=== PATIENT | female | born 1970 | race Hispanic/Latino ===

== ENCOUNTER 2017-07-16 16:45 | Emergency (ER) | payer MEDICARE ==
[2017-07-16 17:55] LABS: #Eosinphils 0.1 thou/uL (0.0-0.7); #Lymphocytes 2.4 thou/uL (1.20-3.40); #Monocytes 0.4 thou/uL (0.11-0.59); %Basophils 0.7 % (0.0-1.0); %Lymphocytes 34.4 % (21.0-51.0); %Monocytes 5.7 % (0.0-10.0); %Neutrophils 57.2 % (42.0-75.0); Hemoglobin 11.7 g/dL (12.0-16.0); Mean Corpuscular HGB CONC 35.4 g/dL (32.0-36.0); Mean Corpuscular Hemoglobin 31.9 pg (27.0-31.0); Mean Corpuscular Volume 90.1 fl (81.0-99.0); Mean Platelet Volume 7.2 fL (7.4-10.4); Platelet Count 303 thou/uL (130-400); RBC Distribution Width 11.8 % (11.5-14.5); Red Blood Cell (RBC) Count 3.66 mill/uL (4.20-5.40); White Blood Cell (WBC) Count 7.1 thou/uL (4.8-10.8)
[2017-07-16 18:16] LABS: BHCG - Serum Negative (NEGATIVE); Pregs Control Background? CLEAR/WHITE (CLR/WHITE); Pregs Control Bar Appear? YES (CONTROL BAR)
[2017-07-16 18:20] LABS: ALT (SGPT) 14 U/L (8-55); AST (SGOT) 17 U/L (5-34); Albumin 4.1 g/dL (3.5-5.0); Alkaline Phosphatase 71 U/L (40-150); Anion Gap 14 mmol/L (10-20); BUN (Urea Nitrogen) 11 mg/dL (7.0-18.7); Bilirubin, Total 0.2 mg/dL (0.2-1.2); Calc. Creatinine Clearance 0 mL/min (70-130); Calcium 9.2 mg/dL (7.8-10.44); Carbon Dioxide 24 mmol/L (22-29); Chloride 105 mmol/L (98-107); Estimated GFR-MDRD 84; Globulin 3.2 g/dL (2.4-3.5); Glucose 101 mg/dL (70-105); Protein, Total 7.3 g/dL (6.0-8.3); Sodium 139 mmol/L (136-145)
--- NOTE | 2017-07-16 18:38 | ULT ---
TRANSABDOMINAL AND TRANSVAGINAL PELVIC ULTRASOUND: Date: 07/16/17 INDICATION: Vaginal bleeding with large clots. TECHNIQUE: Palacio scale and color Doppler images were obtained of the pelvis. FINDINGS: There is a large fibroid involving the anterior fundus and anterior body of the uterus. It measures 4 .8 x 4.3 cm. The endometrial stripe is not well seen. Within the lower uterine segment, in the region of endometrial canal, there is an 8.0 mm heterogeneous collection which may reflect a blood clot. No free fluid is demonstrated. The adnexa are not well seen due to overlying bowel gas. IMPRESSION: 1. Fibroid uterus. 2. 8.0 mm heterogeneous collection seen within the endometrial canal of lower uterine segment suspic ious for small amount of intracanal hemorrhage. 3. Adnexa not well seen due to overlying bowel gas. POS: [facility]
--- NOTE | 2017-07-17 00:52 | CON ---
DATE OF CONSULTATION: 07/17/2017 GYNECOLOGIC CONSULTATION REGULAR PHYSICIAN: Allison Lopez M.D. EVALUATING PHYSICIAN: David Mcconnell M.D. CHIEF COMPLAINT: Vaginal bleeding since . HISTORY OF PRESENT ILLNESS: Ms. Bourgeois is a 47-year-old Latin-Trinid[place] female, , who presents complaining of a history of heavy vaginal bleeding since . She states that she had bled up to approximately 1 pad an hour prior to her arrival. PAST OBSTETRICAL/GYNECOLOGIC HISTORY: She has had 2 uncomplicated vaginal deliveries. She reports a n endometrial ablation approximately 10 years ago. Of note, it is the fact that she was seen by Dr. Lopez 4 months ago and plans had been made for hysterectomy, but these were apparently canceled due to cost. PAST MEDICAL HISTORY: Seizures and elevated triglycerides. She is currently on Keppra dose unknown and pravastatin. PAST SURGICAL HISTORY: Ablation as above, tubal ligation, ankle and knee surgery. ALLERGIES: No known allergies. SOCIAL HISTORY: She drinks socially, but denies tobacco or alcohol use. FAMILY HISTORY: Denies pelvic malignancy. REVIEW OF SYSTEMS: Denies nausea, vomiting, fever, chills, or syncopal episodes. PHYSICAL EXAMINATION: VITAL SIGNS: Initial exam in the ER shows blood pressure 139/82, pulse 94, respirations 16, and temp erature 98.2. Her pulse is currently in the 80s. ABDOMEN: Soft and nontender. There is no guarding or rebound. PELVIC EXAMINATION: Her uterus is slightly enlarged. There is dark blood in the vault, but she is n ot actively bleeding. LABORATORY DATA: CBC shows a white count of 7.1, hemoglobin of 11.7, hematocrit of 32.9, and a plate let count of 303. Her test is negative. Ultrasound shows a fibroid uterus seen anteriorly in the lower uterine segment reportedly 4 cm in diameter. Her adnexa are not well seen. ASSESSMENT: 1. Menorrhagia with a history of previous endometrial ablation. 2. Fibroid uterus by ultrasound tonight. PLAN: At this time, we will attempt outpatient management with Provera 10 mg p.o. b.i.d. for the nex t 10 days. I did discuss with Dr. Lopez and she can follow up with her next week. The patient was given complete discharge instructions and was told to return for pain, heavy bleeding, dizziness, or headache. She voiced understanding of her discharge instructions and was discharged by the emergency room.
[2017-07-19 04:13] LABS: Chlamydia by PCR Not Detected (NotDetected); GC by PCR Not Detected (NotDetected)
== END 2017-07-16 20:12 | disposition home or self-care (01) ==
LOC: ERS 16:45
DX: N92.0 Excessive and frequent menstruation with regular cycle (principal); D25.9 Leiomyoma of uterus, unspecified; E78.00 Pure hypercholesterolemia, unspecified; E78.5 Hyperlipidemia, unspecified; G40.909 Epilepsy, unspecified, not intractable, without status epilepticus; Z86.73 Personal history of transient ischemic attack (TIA), and cerebral infarction without residual deficits; Z79.82 Long term (current) use of aspirin; Z79.899 Other long term (current) drug therapy
CPT/HCPCS: 76856; 80053; 84703; 85025; 86850; 86900; 86901; 87480; 87491; 87510; 87591; 87660; 96360

== ENCOUNTER 2017-07-20 12:35 | Emergency (ER) | payer MEDICARE ==
[2017-07-20 13:20] LABS: #Basophils 0.1 thou/uL (0.0-0.2); #Eosinphils 0.1 thou/uL (0.0-0.7); #Lymphocytes 2.4 thou/uL (1.20-3.40); #Monocytes 0.5 thou/uL (0.11-0.59); #Neutrophils 4.9 thou/uL (1.40-6.50); %Lymphocytes 30.5 % (21.0-51.0); %Monocytes 6.3 % (0.0-10.0); %Neutrophils 61.3 % (42.0-75.0); Hemoglobin 10.6 g/dL (12.0-16.0); Mean Corpuscular Hemoglobin 31.2 pg (27.0-31.0); Mean Corpuscular Volume 91.5 fl (81.0-99.0); Mean Platelet Volume 6.7 fL (7.4-10.4); Platelet Count 342 thou/uL (130-400); RBC Distribution Width 11.9 % (11.5-14.5); White Blood Cell (WBC) Count 7.9 thou/uL (4.8-10.8)
[2017-07-20 13:47] LABS: ALT (SGPT) 12 U/L (8-55); AST (SGOT) 15 U/L (5-34); Albumin 4.2 g/dL (3.5-5.0); Alkaline Phosphatase 56 U/L (40-150); Anion Gap 13 mmol/L (10-20); BUN (Urea Nitrogen) 15 mg/dL (7.0-18.7); Bilirubin, Total 0.4 mg/dL (0.2-1.2); Calc. Creatinine Clearance 0 mL/min (70-130); Calcium 9.4 mg/dL (7.8-10.44); Carbon Dioxide 23 mmol/L (22-29); Chloride 103 mmol/L (98-107); Estimated GFR-MDRD Greater than 90; Globulin 2.9 g/dL (2.4-3.5); Glucose 101 mg/dL (70-105); Potassium 3.8 mmol/L (3.5-5.1); Protein, Total 7.1 g/dL (6.0-8.3); Sodium 135 mmol/L (136-145)
== END 2017-07-20 15:09 | disposition home or self-care (01) ==
LOC: ERS 12:35
DX: N93.9 Abnormal uterine and vaginal bleeding, unspecified (principal); E78.5 Hyperlipidemia, unspecified; G40.909 Epilepsy, unspecified, not intractable, without status epilepticus; Z79.899 Other long term (current) drug therapy; Z79.82 Long term (current) use of aspirin
CPT/HCPCS: 36415; 80053; 85025; 99284

== ENCOUNTER 2017-07-21 23:23 | Emergency (ER) | payer MEDICARE ==
[2017-07-22 00:02] LABS: #Basophils 0.1 thou/uL (0.0-0.2); #Eosinphils 0.1 thou/uL (0.0-0.7); #Monocytes 0.5 thou/uL (0.11-0.59); #Neutrophils 3.8 thou/uL (1.40-6.50); %Basophils 1.1 % (0.0-1.0); %Lymphocytes 39.6 % (21.0-51.0); %Monocytes 6.4 % (0.0-10.0); Hemoglobin 9.3 g/dL (12.0-16.0); Mean Corpuscular HGB CONC 34.6 g/dL (32.0-36.0); Mean Corpuscular Hemoglobin 31.5 pg (27.0-31.0); Mean Corpuscular Volume 91.2 fl (81.0-99.0); Mean Platelet Volume 6.5 fL (7.4-10.4); Platelet Count 329 thou/uL (130-400); RBC Distribution Width 11.9 % (11.5-14.5); Red Blood Cell (RBC) Count 2.94 mill/uL (4.20-5.40); White Blood Cell (WBC) Count 7.5 thou/uL (4.8-10.8)
[2017-07-22 00:22] LABS: ALT (SGPT) 14 U/L (8-55); AST (SGOT) 16 U/L (5-34); Albumin 3.9 g/dL (3.5-5.0); Alkaline Phosphatase 61 U/L (40-150); Anion Gap 11 mmol/L (10-20); BUN (Urea Nitrogen) 13 mg/dL (7.0-18.7); Bilirubin, Total 0.2 mg/dL (0.2-1.2); Calc. Creatinine Clearance 0 mL/min (70-130); Calcium 8.4 mg/dL (7.8-10.44); Carbon Dioxide 22 mmol/L (22-29); Chloride 106 mmol/L (98-107); Estimated GFR-MDRD Greater than 90; Globulin 2.7 g/dL (2.4-3.5); Glucose 112 mg/dL (70-105); Magnesium 2.1 mg/dL (1.6-2.6); Potassium 3.4 mmol/L (3.5-5.1); Protein, Total 6.6 g/dL (6.0-8.3); Sodium 136 mmol/L (136-145)
[2017-07-22 00:24] LABS: INR-International Normal Ratio 1.1; Prothrombin Time 14.2 SEC (12.0-14.7)
== END 2017-07-22 01:05 | disposition home or self-care (01) ==
LOC: ERS 23:23
DX: N93.9 Abnormal uterine and vaginal bleeding, unspecified (principal); Z86.73 Personal history of transient ischemic attack (TIA), and cerebral infarction without residual deficits; E78.5 Hyperlipidemia, unspecified; G40.909 Epilepsy, unspecified, not intractable, without status epilepticus; Z79.82 Long term (current) use of aspirin; Z79.899 Other long term (current) drug therapy
CPT/HCPCS: 36415; 80053; 83735; 85025; 85610; 85730; 86850; 86900; 86901; 99284

== ENCOUNTER 2018-02-05 12:51 | Outpatient (CLI) | payer BC, MEDICARE | END 2018-02-05 12:52 | disposition home or self-care (01) | LOC: BICMAMMO 12:51 | PROVIDERS: ATTEND Family Medicine | DX: Z12.31 Encounter for screening mammogram for malignant neoplasm of breast (principal) | CPT/HCPCS: 77063; 77067 ==

== ENCOUNTER 2018-04-10 08:10 | Emergency (ER) | payer BC, MEDICARE ==
[2018-04-10 08:44] LABS: #Basophils 0.1 thou/uL (0.0-0.2); #Eosinphils 0.1 thou/uL (0.0-0.7); #Lymphocytes 2.2 thou/uL (1.20-3.40); #Monocytes 0.4 thou/uL (0.11-0.59); #Neutrophils 3.9 thou/uL (1.40-6.50); %Basophils 1.6 % (0.0-1.0); %Eosinophils 1.3 % (0.0-10.0); %Lymphocytes 32.6 % (21.0-51.0); %Monocytes 6.3 % (0.0-10.0); %Neutrophils 58.2 % (42.0-75.0); Hemoglobin 9.7 g/dL (12.0-16.0); Mean Corpuscular HGB CONC 32.7 g/dL (32.0-36.0); Mean Corpuscular Hemoglobin 26.7 pg (27.0-31.0); Mean Corpuscular Volume 81.5 fL (78.0-98.0); Mean Platelet Volume 7.1 fL (7.4-10.4); Platelet Count 362 thou/uL (130-400); RBC Distribution Width 16.4 % (11.5-14.5); Red Blood Cell (RBC) Count 3.63 mill/uL (4.20-5.40); White Blood Cell (WBC) Count 6.7 thou/uL (4.8-10.8)
[2018-04-10 08:50] LABS: BHCG - Serum Negative (NEGATIVE); Pregs Control Background? CLEAR/WHITE (CLR/WHITE); Pregs Control Bar Appear? YES (CONTROL BAR)
[2018-04-10 09:02] LABS: ALT (SGPT) 10 U/L (8-55); AST (SGOT) 13 U/L (5-34); Alkaline Phosphatase 58 U/L (40-150); Anion Gap 12 mmol/L (10-20); BUN (Urea Nitrogen) 14 mg/dL (7.0-18.7); Bilirubin, Total 0.2 mg/dL (0.2-1.2); Calc. Creatinine Clearance 0 mL/min (70-130); Carbon Dioxide 23 mmol/L (22-29); Chloride 106 mmol/L (98-107); Estimated GFR-MDRD Greater than 90; Globulin 2.8 g/dL (2.4-3.5); Glucose 113 mg/dL (70-105); Protein, Total 6.8 g/dL (6.0-8.3); Sodium 137 mmol/L (136-145)
--- NOTE | 2018-04-10 11:37 | ULT ---
PELVIC ULTRASOUND: Comparison: 07-16-17 History: Heavy menstrual bleeding, passing large clots for two weeks. Technique: Multiplanar grayscale and color doppler images were obtained in a transabdominal and trans vaginal pelvic ultrasound. FINDINGS: The endometrial stripe cannot be seen within the uterus. Nabothian cysts are seen in the cervix measu ring up to 1.4 cm in size. The fundus of the uterus is slightly prominent and heterogeneous which cou ld represent a uterine fibroid. No free fluid is seen in the pelvis. A cystic structure is seen in the right adnexa measuring 3.6 cm in greatest dimension. This likely represent an ovarian cyst/follicle. The left ovary cannot be defin itely seen. IMPRESSION: 1. Possible uterine fibroid. 2. Nabothian cyst. 3. Likely right ovary cyst/follicle. POS: [facility]
== END 2018-04-10 11:39 | disposition home or self-care (01) ==
LOC: ERS 08:10
DX: N94.6 Dysmenorrhea, unspecified (principal); G40.909 Epilepsy, unspecified, not intractable, without status epilepticus; E78.5 Hyperlipidemia, unspecified; Z79.82 Long term (current) use of aspirin; Z79.899 Other long term (current) drug therapy
CPT/HCPCS: 36415; 76856; 80053; 84703; 85025

== ENCOUNTER 2018-04-10 13:41 | Emergency (ER) | payer BC, MEDICARE ==
[2018-04-10 14:40] LABS: #Basophils 0.1 thou/uL (0.0-0.2); #Eosinphils 0.1 thou/uL (0.0-0.7); #Lymphocytes 2.2 thou/uL (1.20-3.40); #Monocytes 0.4 thou/uL (0.11-0.59); %Basophils 1.6 % (0.0-1.0); %Eosinophils 0.9 % (0.0-10.0); %Lymphocytes 24.5 % (21.0-51.0); Hemoglobin 8.8 g/dL (12.0-16.0); Mean Corpuscular HGB CONC 32.1 g/dL (32.0-36.0); Mean Corpuscular Hemoglobin 25.9 pg (27.0-31.0); Mean Corpuscular Volume 80.6 fL (78.0-98.0); Mean Platelet Volume 7.1 fL (7.4-10.4); Platelet Count 328 thou/uL (130-400); RBC Distribution Width 16.4 % (11.5-14.5); Red Blood Cell (RBC) Count 3.38 mill/uL (4.20-5.40); White Blood Cell (WBC) Count 8.9 thou/uL (4.8-10.8)
== END 2018-04-10 15:45 | disposition home or self-care (01) ==
LOC: ERS 13:41
DX: N93.9 Abnormal uterine and vaginal bleeding, unspecified (principal); R53.1 Weakness; E78.5 Hyperlipidemia, unspecified; G40.909 Epilepsy, unspecified, not intractable, without status epilepticus; Z86.73 Personal history of transient ischemic attack (TIA), and cerebral infarction without residual deficits; Z79.82 Long term (current) use of aspirin; Z79.899 Other long term (current) drug therapy
CPT/HCPCS: 36415; 76856; 80053; 84703; 85025; 99284

== ENCOUNTER 2018-05-10 00:05 | Outpatient (CLI) | payer BC, MEDICARE ==
[2018-05-10 13:59] LABS: #Basophils 0.1 thou/uL (0.0-0.2); #Eosinphils 0.1 thou/uL (0.0-0.7); #Lymphocytes 2.4 thou/uL (1.20-3.40); #Monocytes 0.5 thou/uL (0.11-0.59); #Neutrophils 3.8 thou/uL (1.40-6.50); %Basophils 1.1 % (0.0-1.0); %Eosinophils 1.4 % (0.0-10.0); %Lymphocytes 34.9 % (21.0-51.0); %Monocytes 7.8 % (0.0-10.0); %Neutrophils 54.7 % (42.0-75.0); Hemoglobin 10.1 g/dL (12.0-16.0); Mean Corpuscular HGB CONC 30.6 g/dL (32.0-36.0); Mean Corpuscular Hemoglobin 29.4 pg (27.0-31.0); Mean Corpuscular Volume 95.9 fL (78.0-98.0); Mean Platelet Volume 6.9 fL (7.4-10.4); Platelet Count 435 thou/uL (130-400); Red Blood Cell (RBC) Count 3.45 mill/uL (4.20-5.40)
== END 2018-05-10 00:06 | disposition home or self-care (01) ==
LOC: LABBT 00:05
PROVIDERS: ATTEND Obstetrics & Gynecology
DX: Z01.812 Encounter for preprocedural laboratory examination (principal); N92.0 Excessive and frequent menstruation with regular cycle; D21.9 Benign neoplasm of connective and other soft tissue, unspecified
CPT/HCPCS: 85025; 86850; 86900; 86901

== ENCOUNTER 2018-05-10 12:00 | Inpatient (IN) | payer BC, MEDICARE ==
[2018-05-10 12:25] VITALS: BMI 30.3
--- NOTE | 2018-05-10 14:25 | HP ---
Ms. Bourgeois is having schedule surgery 05/14/2018. HISTORY OF PRESENT ILLNESS: Ms. Bourgeois is a 48-year-old Latin-Spanish female with date of 1970, who is having a history of menorrhagia requiring blood transfusion for severe anemia. She has a history of having known uterine fibroids that were found out approximately 2016 with a pelvic ultrasound evaluation. 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 This occurred prior to the 2011 surgical procedure for menorrhagia, which was Thermachoice. The patient had done well with the Thermachoice endometrial ablation in 2011, but then began having heavy bleeding back in 2016 with ultrasounds showing 3 x 3 cm uterine fibroid involving part of the uterine cavity. As noted, she has again started having heavy flow, most recently in April and presented to the emergency room, where she wanted to proceed with blood transfusion for anemia from the menorrhagia. She has been taking Provera 10 mg daily to help decrease the flow. She is desiring definitive surgical therapy now. Her primary care provider is Dr. Weiss. Last Pap smear reported by patient was by Dr. Weiss in January of 2018, which was normal. PAST MEDICAL HISTORY: CVA in the past and hyperlipidemia. PAST SURGICAL HISTORY: Tubal ligation, ankle surgery, Thermachoice endometrial ablation in 2011, and knee arthroscopy surgery. SOCIAL HISTORY: She is a nonsmoker. No excessive alcohol use. FAMILY HISTORY: She has no significant family history. No ovarian cancer history. CURRENT MEDICATIONS: 1. Keppra 500 mg b.i.d. 2. Provera 10 mg daily. PHYSICAL EXAMINATION: VITAL SIGNS: Height 5 feet 2 inches, weight 166 pounds, BMI 30.4, blood pressure 120/70, pulse 100 and regular, O2 saturations 98%. HEENT: Exam within normal limits. CHEST: Clear to auscultation. HEART: Regular rate and rhythm. S1 and S2 heart sounds. No murmurs, rubs, or gallops. ABDOMEN: Soft, nontender, and nondistended with no palpable masses. PELVIC: Vulva and vagina had no lesions. Cervix had no gross lesions. Uterus was enlarged in a regular contour, approximately 14-week size. Adnexa nontender with no masses. ASSESSMENT: This is a 48-year-old Latin-Spanish female G3, P2, A1, with menorrhagia and now 14-week uterine fibroids requiring blood transfusion due to anemia. The patient previously had a Thermachoice endometrial ablation, which is now felt subsequent to the fibroids. PLAN: Plan is to proceed with a robotic total laparoscopic hysterectomy, bilateral salpingectomy, and plan for ovarian preservation as long as ovaries are normal. We will need to place the uterus in a bag intraperitoneally for specimen removal via the ExCITE procedure. Risks and benefits of procedure were discussed in detail. She is set for surgery on 05/14/2018. Job ID: [id number]
[2018-05-14] MEDS ORDERED: Famotidine/PF 20 mg/2ml Vial ONE (08:00)
[2018-05-14] MEDS ORDERED: CeleCOXIB 100 MG CAP ONE (08:00)
[2018-05-14] MEDS ORDERED: Gabapentin 300 MG CAP ONE (08:00)
[2018-05-14] MEDS ORDERED: Bupivacaine HCl 0.5%/Epinephrine 1:200,000/PF 30 ml Vial ONE (09:42)
[2018-05-14] MEDS ORDERED: Fentanyl 100 MCG/2 ML VIAL ONE ×2 (09:44→12:05)
[2018-05-14] MEDS ORDERED: Non-Formulary Medication 1 EACH PO PRN (13:02)
[2018-05-14] MEDS ORDERED: Ondansetron HCl/PF 4 MG/2 ML Vial IVP PRN (13:02)
[2018-05-14] MEDS ORDERED: Promethazine HCl 25 MG/ML VIAL IM/IV PRN (13:02)
--- NOTE | 2018-05-14 14:12 | OP ---
DATE OF PROCEDURE: 05/14/2018 PREOPERATIVE DIAGNOSES: 1. A 48-year-old female with symptomatic 14-week uterine fibroids. 2. Menorrhagia and anemia requiring blood transfusion. 3. Desires definitive surgical therapy. POSTOPERATIVE DIAGNOSES: 1. A 48-year-old female with symptomatic 14-week uterine fibroids. 2. Menorrhagia and anemia requiring blood transfusion. 3. Desires definitive surgical therapy. PROCEDURES PERFORMED: Robotic total laparoscopic hysterectomy and bilateral salpingectomy with the extracorporeal C-incision tissue extraction procedure for removal of the uterine specimen. TUBE BENDING MACHINE OPERATOR SURGEON: Jass Soler DO, MS ANESTHESIA: General endotracheal. ESTIMATED BLOOD LOSS: 25 mL. COMPLICATIONS: None. COUNTS: Correct x2. ANTIBIOTICS: 2 g Ancef, on-call to OR. FINDINGS: 1. Bilateral normal-appearing ovaries and fallopian tubes with Falope rings noted. 2. Enlarged 14-week uterine fibroids. 3. Clear urine present in Martínez catheter postprocedure and bilateral ureteral peristalsis noted postprocedure. PATHOLOGY: Uterus, cervix, and bilateral fallopian tubes. DISPOSITION: Recovery room, stable. DESCRIPTION OF PROCEDURE: The patient previously received informed consent in regard to surgery. She was taken back to the operating room, where she received general endotracheal anesthetic agent without complications. She was placed in the dorsal lithotomy position with the use of Jonh stirrups, prepped and draped in usual sterile fashion. A Martínez catheter was placed at this time. A side-arm speculum was placed in the vagina. Anterior lip of cervix was grasped with single-tooth tenaculum. The uterus sounded to 14 cm. A size 12 cm KEN uterine manipulator with a 4.0 cm cervical cup was placed. Tenaculum and speculum were removed. Attention was then turned to the abdomen, where perspective trocar sites were infiltrated 0.5% Marcaine with epinephrine. A 12 mm supraumbilical incision was made. A Veress needle was entered in the peritoneal cavity. The patient's pressure was noted to be less than 5 mm. Abdomen was insufflated with the patient's pressure of 15 approximately 4.5 L of carbon dioxide gas. A size 12 mm trocar was then placed in the supraumbilical incision site and the laparoscope was introduced through the trocar sleeve confirming proper entry. The pelvis was inspected with the previously mentioned findings and the fascial incision was then cut on the trocars to extend it to 2.5 cm in order to place the GelPOINT trocar. Once the GelPOINT was secured, the previously folded Aces tissue bag was placed in the right upper quadrant of the patient's abdomen and then, the trocar site placed through the GelPOINT and they were anchored back onto the trocar opening and the scope was placed through the trocar sleeve. The patient was placed in Trendelenburg position. Additional bilateral lower quadrant 8 mm trocars were placed under laparoscopic guidance along with the right upper quadrant 11 mm cardiovascular physician assistant port. Robot was then docked in usual fashion. Next, I proceeded to broke the scrub and positioned myself in the console, where my assistants remained at the bedside. The uterus was elevated from the pelvis. My cardiovascular physician assistant grasped the left fallopian tube, this was coagulated in the mesosalpinx and excised. This specimen was brought up through the right upper quadrant port. The uterine ovarian ligaments were then coagulated and transected. Serial coagulation of the broad ligament hugging close to uterus was carried out to the left round ligament was reached. It was coagulated and transected. The anterior leaf of the broad ligament was then entered dissecting the vesicouterine peritoneal flap and fold in both sharply and bluntly, dropping the bladder past the cervical vaginal angle. The uterine vessels were skeletonized on the left side and they were coagulated in internal cervical os region. This was carried down in similar fashion on the right side of the uterus again. The right fallopian tube was excised in a similar fashion. Right utero-ovarian ligament was coagulated and transected and serial coagulation and transection of broad ligament to the right round ligament again was coagulated and transected. The anterior leaf of the broad ligament was entered. The vesicouterine peritoneal excision was made under direct visualization. The bladder was dropped atraumatically past the cervical vaginal angle and the uterine vessels on the right side were skeletonized and coagulated in the internal cervical os region. After this had been completed, the posterior colpotomy was made from 6 o'clock to 3 o'clock and 6 o'clock to 9 o'clock position. Anterior colpotomy was completed from 12 o'clock to 3 o'clock and 12 o'clock to 9 o'clock. The specimen was then delivered up in the abdomen, taken off the Circuport uterine manipulator and the vaginal vault was sealed to allow for continuation of pneumoperitoneum. The vaginal cuff was then coagulated of any oozing areas and then, monopolar scissors were switched out for a Vin needle driver messenger. My cardiovascular physician assistant brought in a Stratafix suture and the vaginal cuff was closed in full-thickness from right angle to the left angle back towards the midline, securing the vaginal cuff hemostasis. All the pedicle sites and the sidewalls and the vaginal cuff were noted to be hemostatic. At this time, the endobag had been placed in the right upper quadrant was brought down in the pelvis. It was opened with the previous 2 suture ties and the specimen was then easily brought into the bag. It was secured and the suture string was brought up through the GelPOINT by my cardiovascular physician assistant. The robot was undocked. The GelPOINT cap was opened. The endobag with the specimen was pulled through and the tissue was removed and the C-incision technique type being contained within the bag. Once all the specimen was removed, the endobag was pulled out and was intact. The Aces and GelPOINT retractors were removed. The fascia then was closed in the supraumbilical area with a running 4-0 Vicryl suture securing the fascial closure. The remainder of trocar sites were closed with 4-0 Monocryl suture and Dermabond. The patient was awakened from anesthesia and transferred to recovery in stable condition. Job ID: [id number]
[2018-05-14] MEDS ORDERED: Acetaminophen 325 MG TAB PO PRN (14:29)
[2018-05-14] MEDS ORDERED: diphenhydrAMINE 25 MG CAP PO PRN (14:29)
[2018-05-14] MEDS ORDERED: traMADol HCl 50 MG TAB PO PRN ×2 (14:29)
[2018-05-14] MEDS ORDERED: Simethicone Chewable 80 MG TAB PO PRN (14:29)
[2018-05-14] MEDS ORDERED: Promethazine HCl 25 MG/ML VIAL IM PRN (14:29)
[2018-05-14] MEDS ORDERED: Morphine 4 MG/ML VIAL SLOW IVP PRN (14:29)
[2018-05-14] MEDS ORDERED: Ondansetron PF 4 MG/2 ML Vial IVP PRN (14:29)
[2018-05-14] MEDS ORDERED: Bisacodyl 10 MG SUPP PR PRN (14:29)
[2018-05-14] MEDS ORDERED: Zolpidem Tartrate 5 MG TAB PO PRN (14:29)
[2018-05-14] MEDS: Lactated Ringer's 1,000 ML IV SCH (14:49)
[2018-05-14] MEDS ORDERED: Glycopyrrolate 0.2 MG/ML 5 ML SYRINGE ONE (16:50)
[2018-05-14] MEDS ORDERED: ePHEDrine 50 MG/ML VIAL ONE (16:50)
[2018-05-14] MEDS ORDERED: Dexamethasone 20 MG/5 ML VIAL ONE (16:50)
[2018-05-14] MEDS ORDERED: Ondansetron PF 4 MG/2 ML Vial ONE (16:50)
[2018-05-14] MEDS ORDERED: Lidocaine 1% PF 5 ML VIAL ONE (16:50)
[2018-05-14] MEDS ORDERED: PROPOFOL 200 MG/20 ML VIAL ONE (16:50)
[2018-05-14] MEDS ORDERED: Rocuronium Bromide 10 MG/ML (10ML VIAL) ONE (16:50)
[2018-05-14] MEDS: Ketorolac Tromethamine 30 MG/ML VIAL IVP SCH (17:37)
[2018-05-14] MEDS: Acetaminophen 1,000 MG in Premix Bag 1 BAG IVPB SCH (17:38)
[2018-05-14] MEDS ORDERED: levETIRAcetam 500 MG TAB PO SCH (21:00)
[2018-05-15] MEDS ORDERED: Ketorolac Tromethamine 30 MG/ML VIAL ONE (00:10)
[2018-05-15] MEDS: Ketorolac Tromethamine 30 MG/ML VIAL IVP SCH ×2 (00:26→06:24)
[2018-05-15] MEDS: Acetaminophen 1,000 MG in Premix Bag 1 BAG IVPB SCH ×2 (00:31→06:25)
[2018-05-15] MEDS ORDERED: levETIRAcetam 500 MG TAB PO SCH (05:00)
[2018-05-15] MEDS: Lactated Ringer's 1,000 ML IV SCH ×2 (07:43→07:44)
[2018-05-15 08:50] LABS: Hemoglobin 9.3 g/dL (12.0-16.0); Mean Corpuscular HGB CONC 30.5 g/dL (32.0-36.0); Mean Corpuscular Hemoglobin 28.8 pg (27.0-31.0); Mean Corpuscular Volume 94.5 fL (78.0-98.0); Mean Platelet Volume 6.9 fL (7.4-10.4); Platelet Count 383 thou/uL (130-400); RBC Distribution Width 15.5 % (11.5-14.5); Red Blood Cell (RBC) Count 3.22 mill/uL (4.20-5.40); White Blood Cell (WBC) Count 10.1 thou/uL (4.8-10.8)
[2018-05-15 11:17] VITALS: BP 127/61; TEMP 98.4
--- NOTE | 2018-05-16 05:08 | DIS ---
DATE OF ADMISSION: 05/14/2018 DATE OF DISCHARGE: 05/15/2018 DIAGNOSES: 1. Symptomatic uterine fibroids. 2. Menorrhagia and anemia requiring transfusion due to uterine fibroids. 3. Comorbid history of prior cerebrovascular accident with epilepsy, stable. PROCEDURES PERFORMED: Robotic total laparoscopic hysterectomy and bilateral salpingectomy with ExCITE removal of the enlarged uterine specimen. SUMMARY OF HOSPITAL COURSE: Ms. Bourgeois is a 48-year-old Latin-[place]er female with known 14-week uterine fibroids. She has been having increasingly heavy bleeding episodes, requiring some blood in previous blood transfusion. She underwent definitive surgical therapy with a robotic total laparoscopic hysterectomy and bilateral salpingectomy on 05/14/2018. The specimen was removed with ExCITE procedure. She did well postoperatively. She is ambulating and voiding postop day zero, evening of the surgery, and had adequate control with oral ibuprofen and Tylenol and p.r.n. tramadol. She was ambulating and voiding without difficulty and tolerating regular diet. On postop day #1, her hematocrit was appropriate at 30.4%. She was discharged home with tramadol 50 mg q.6 hours p.r.n. pain, [id number] ibuprofen as directed. Pathology is pending at the time of this dictation. She will have a followup in 6 weeks postop. Job ID: [id number]
[2018-05-19] MEDS ORDERED: Ibuprofen 800 MG TAB PO SCH (21:00)
== END 2018-05-15 11:15 | disposition home or self-care (01) | DRG 743 ==
LOC: SURG A 05-14 07:43 → 3SE 05-14 14:29
PROVIDERS: ADMIT Obstetrics & Gynecology; ATTEND Obstetrics & Gynecology
PROC: 0UT94ZZ Resection of Uterus, Percutaneous Endoscopic Approach (ICD-10-PCS; principal; 2018-05-14)
PROC: 0UT74ZZ Resection of Bilateral Fallopian Tubes, Percutaneous Endoscopic Approach (ICD-10-PCS; 2018-05-14)
PROC: 8E0W4CZ Robotic Assisted Procedure of Trunk Region, Percutaneous Endoscopic Approach (ICD-10-PCS; 2018-05-14)
DX: D25.9 Leiomyoma of uterus, unspecified (principal); N92.0 Excessive and frequent menstruation with regular cycle; D64.9 Anemia, unspecified; E78.5 Hyperlipidemia, unspecified; Z86.73 Personal history of transient ischemic attack (TIA), and cerebral infarction without residual deficits; Z98.51 Tubal ligation status; Z98.890 Other specified postprocedural states
CPT/HCPCS: 36415; 85027; 88307; J0131; J0670; J1100; J1885; J2001; J2405; J2704; J3010; J3490; S0028

== ENCOUNTER 2018-06-13 11:54 | Observation (INO) | payer BC, MEDICARE ==
[2018-06-13 12:24] LABS: #Basophils 0.1 thou/uL (0.0-0.2); #Eosinphils 0.4 thou/uL (0.0-0.7); #Lymphocytes 2.3 thou/uL (1.20-3.40); #Monocytes 0.4 thou/uL (0.11-0.59); #Neutrophils 4.2 thou/uL (1.40-6.50); %Basophils 0.8 % (0.0-1.0); %Eosinophils 5.3 % (0.0-10.0); %Lymphocytes 31.5 % (21.0-51.0); %Monocytes 5.3 % (0.0-10.0); %Neutrophils 57.1 % (42.0-75.0); Hemoglobin 11.3 g/dL (12.0-16.0); Mean Corpuscular Hemoglobin 26.1 pg (27.0-31.0); Mean Corpuscular Volume 84.4 fL (78.0-98.0); Mean Platelet Volume 6.8 fL (7.4-10.4); Platelet Count 467 thou/uL (130-400); RBC Distribution Width 14.3 % (11.5-14.5); Red Blood Cell (RBC) Count 4.32 mill/uL (4.20-5.40); White Blood Cell (WBC) Count 7.3 thou/uL (4.8-10.8)
[2018-06-13] MEDS ORDERED: Lorazepam 2 MG/ML VIAL ONE (13:03)
[2018-06-13] MEDS ORDERED: levETIRAcetam In NaCl (Iso-Os) 1,500 MG in Premix Bag 1 BAG IVPB SCH (13:30)
[2018-06-13 13:34] LABS: INR-International Normal Ratio 1.1; PTT 27.8 SEC (22.9-36.1); Prothrombin Time 14.2 SEC (12.0-14.7)
[2018-06-13] MEDS ORDERED: Ferric Subsulfate 8 ML BOT TOP SCH (13:45)
[2018-06-13 13:52] LABS: ALT (SGPT) 12 U/L (8-55); AST (SGOT) 14 U/L (5-34); Albumin 3.9 g/dL (3.5-5.0); Alkaline Phosphatase 70 U/L (40-150); Anion Gap 17 mmol/L (10-20); BUN (Urea Nitrogen) 9 mg/dL (7.0-18.7); Bilirubin, Total Less than 0.2 mg/dL (0.2-1.2); Calc. Creatinine Clearance 0 mL/min (70-130); Carbon Dioxide 17 mmol/L (22-29); Chloride 106 mmol/L (98-107); Estimated GFR-MDRD 84; Globulin 3.2 g/dL (2.4-3.5); Glucose 160 mg/dL (70-105); Protein, Total 7.1 g/dL (6.0-8.3); Sodium 136 mmol/L (136-145)
[2018-06-13 14:34] LABS: Bilirubin Negative (Negative); Blood, Urine Trace (Negative); Glucose, Urine (Dipstick) Negative (Negative); Leukocyte Negative (Negative); Nitrite Negative (Negative); Protein, Urine (Dipstick) 30 mg/dL (Neg-Trace); Urobilinogen 0.2 mg/dL (0.2-1.0)
[2018-06-13 14:35] LABS: Clarity Hazy (Clear)
[2018-06-13 14:36] LABS: Specific Gravity, Urine 1.028 (1.002-1.036)
[2018-06-13 14:48] LABS: Medtox Reader # READER 1
--- NOTE | 2018-06-13 14:48 | CT ---
Exam: Head CT without contrast HISTORY: Seizure. CVA COMPARISON: 08/16/2013 FINDINGS: Hemorrhage: No intraparenchymal hemorrhage or extra-axial hematoma. Brain parenchyma: Stable malacic changes involving the right frontal lobe due to remote insult. Remai nder of the cerebral demonstrates preservation cortical garcia-white matter differentiation. There is n o midline shift. Basilar cisterns are patent. Ventricular system: Ventricles and sulci are patent and symmetric. Calvarium: Intact. Sinuses and mastoid air cells: Adequate aeration. Old right lamina Propecia fracture. IMPRESSION: No acute intracranial process.
[2018-06-13 14:49] LABS: Amphetamine Not Detected (NotDetected); Barbiturates Screen Not Detected (NotDetected); Benzodiazepine Screen Detected (NotDetected); Cocaine Metabolite Screen Not Detected (NotDetected); Medtox Control Line Valid? VALID (VALID); Methadone Not Detected (NotDetected); Methamphetamine Not Detected (NotDetected); Opiate Screen Not Detected (NotDetected); Oxycodone Screen Not Detected (NotDetected); Phencyclidine (PCP) Not Detected (NotDetected); THC/Cannabinoid Screen Not Detected (NotDetected); Tricyclic Screen Not Detected (NotDetected)
[2018-06-13 14:55] LABS: Renal Epithelial None Seen HPF (0-3); Transitional Epithelial 0-3 HPF (0-3); WBC/HPF 0-3 HPF (0-3)
[2018-06-13 14:56] LABS: Bacteria/HPF None Seen HPF (None Seen); Hyaline Casts/LPF 0-3 HYALINE CAST LPF (0-3 Hyaline)
[2018-06-13 15:04] LABS: #Basophils 0.1 thou/uL (0.0-0.2); #Eosinphils 0.5 thou/uL (0.0-0.7); #Lymphocytes 4.8 thou/uL (1.20-3.40); #Monocytes 0.8 thou/uL (0.11-0.59); #Neutrophils 6.4 thou/uL (1.40-6.50); %Basophils 0.7 % (0.0-1.0); %Eosinophils 3.8 % (0.0-10.0); %Lymphocytes 38.3 % (21.0-51.0); %Monocytes 6.5 % (0.0-10.0); %Neutrophils 50.7 % (42.0-75.0); Hemoglobin 10.9 g/dL (12.0-16.0); Mean Corpuscular HGB CONC 31.2 g/dL (32.0-36.0); Mean Corpuscular Hemoglobin 26.9 pg (27.0-31.0); Mean Corpuscular Volume 86.3 fL (78.0-98.0); Mean Platelet Volume 7.3 fL (7.4-10.4); Platelet Count 489 thou/uL (130-400); RBC Distribution Width 14.3 % (11.5-14.5); Red Blood Cell (RBC) Count 4.05 mill/uL (4.20-5.40); White Blood Cell (WBC) Count 12.6 thou/uL (4.8-10.8)
[2018-06-13] MEDS ORDERED: Acetaminophen 325 MG TAB PO PRN (17:11)
[2018-06-13] MEDS ORDERED: Ondansetron ODT 4 MG TAB PO PRN (17:11)
[2018-06-13] MEDS ORDERED: Lorazepam 2 MG/ML VIAL SLOW IVP PRN (17:14)
[2018-06-13 21:08] VITALS: BMI 29.7
--- NOTE | 2018-06-13 23:39 | CON ---
DATE OF CONSULTATION: 06/13/2018 CHIEF COMPLAINT: Vaginal bleeding. HISTORY OF PRESENT ILLNESS: Patient is a 48-year-old female status post about 4 weeks from a total laparoscopic hysterectomy for persistent vaginal bleeding and fibroids, who was seen yesterday by her primary MARINA DRY DOCK MANAGER, Dr. Lopez, and cleared for her exercise activity. While walking today at the gym, patient started having bleeding running down her leg and came for evaluation. In the process of her evaluation in the emergency room, patient did seize and by the time I came to see her, patient was stable but lethargic. She reports that Dr. Lopez examined her vaginal cuff and said everything was healing well and that she was cleared for activity. She reports again leaking down her leg and passage of clots. The primary ER physician, Dr. Kell Daigle at the time of my arrival was present for the speculum portion of the exam and the physical exam was performed by her. On review of the vaginal cuff, it appeared to be healthy and intact. There was about 75 mL of clot that was removed. On appearance of the cuff, there was no active bleeding present. We did place a large Q-tip of Monsel's against the vaginal cuff to help with any hemostasis necessary and after about 1 minute of pressure, again in reviewing the cuff, there was no evidence of any active bleeding. At this point, I gave reassurance to the patient and instructed her to rest for the next 4 or 5 days before returning to her exercise regimen and if she were to continue having bleeding, to contact her primary OB, Dr. Lopez. At that point, Ms. Bourgeois reported that she has a followup in 2 weeks. At this point my services were no longer needed and I excused myself from the encounter with instructions that the patient was safe to go home from MARINA DRY DOCK MANAGER standpoint. The encounter was a total of about 15 to 20 minutes. Job ID: [id number]
--- NOTE | 2018-06-14 00:05 | HP ---
Attending physician, Dr. Bill May, covering for Dr. Felcie Larson. HISTORY OF PRESENT ILLNESS: The patient is a 48-year-old female with a known history of previous seizure disorder and previous cerebrovascular accident. She is status post recent surgical repair procedure, specifically robotic total laparoscopic hysterectomy, bilateral salpingo-oophorectomy. She was in her normal state of health today. She was enjoying a slight workout which she developed some vaginal bleeding. She brought herself to the emergency room. During that time when she has been evaluated in the emergency room and we controlled her vaginal bleeding which was controlled and she had a seizure. The patient notes that she did not able to take her seizure medicine this morning. She has a history of seizure disorder for many years. She is currently maintained on Keppra 1500 mg daily. Her seizure was controlled with IV Ativan, and since that time she has been seizure-free. A CT scan of brain done today showed no acute intracranial process. Otherwise, no other medical complaints. No history of injuries. Seizure time appeared to be about 5 minutes according to reports, it was a generalized seizure that was witnessed. The patient was found in her room by me, she was sleepy. She was able to be aroused. She does recall most events prior to her seizure. She does have some difficulty remembering her seizure afterwards. Otherwise, no other medical complaints are noted. ALLERGIES: SHE HAS NO KNOWN ALLERGIES. CURRENT MEDICATIONS: She is on, 1. Medroxyprogesterone 10 mg daily. 2. Keppra 500 mg 3 tablets daily. 3. One multivitamin daily. 4. Fish oil daily. 5. Aspirin 81 mg daily. PAST MEDICAL HISTORY: Positive for the above noted hysterectomy, ankle and knee surgery, previous tubal ligation. Medical history is positive for the above noted seizures. SOCIAL AND PERSONAL HISTORY: She is not . She has a significant other in the room with her. Her mother is also at her bedside. FAMILY HISTORY: Noncontributory at this time. PHYSICAL EXAMINATION: VITAL SIGNS: Temperature 98.6, pulse 72, respirations 18, O2 sats 98% on room air. GENERAL: She is alert, active, does not appear in distress. She appears to be drowsy, she does arouse. She is alert and oriented x3. HEENT: Normocephalic and atraumatic. Sclerae and conjunctivae clear. Throat clear. NECK: Supple. Full range of motion. No masses. No bruits auscultated. LUNGS: Clear. HEART: Reveals a regular rate and rhythm. No murmurs, gallops, or rubs. ABDOMEN: Soft and nontender. Bowel sounds are present and active. No hepatosplenomegaly is noted. There is no evidence of any edema, clubbing, or cyanosis noted. EXTREMITIES: No clubbing, edema, or cyanosis. NEUROLOGIC: She is alert and oriented. She is able to move all extremities upon command. LABORATORY DATA: Her white blood count is 12.6, hemoglobin 10.9, hematocrit 34.9. Sodium 136, potassium 4.0, chloride 106, CO2 of 17, BUN 9, creatinine 0.74. Urinalysis, otherwise, clear. Urine drug screen is positive for benzodiazepines, this was taken after she had been given IV Ativan. IMPRESSION: This is a 48-year-old female, who has a previous history of seizure disorder who had a seizure today, vaginal bleeding secondary to recent surgery. PLAN: 1. She has been re-loaded IV with Keppra. We will maintain her oral Keppra. 2. Place her on seizure precautions. 3. If all are stable, she probably will be transferred home tomorrow. Job ID: [id number]
[2018-06-14 05:13] VITALS: TEMP 98.3
[2018-06-14] MEDS ORDERED: Ferrous Sulfate 325 MG TAB PO SCH (08:00)
[2018-06-14 08:29] VITALS: BP 120/77
[2018-06-14] MEDS ORDERED: Fish Oil 1,000 MG CAP PO SCH (09:00)
[2018-06-14] MEDS ORDERED: Multivit, Therapeutic 1 TAB PO SCH (09:00)
[2018-06-14] MEDS ORDERED: Aspirin 81 mg Enteric Coated Tablet PO SCH (09:00)
[2018-06-14] MEDS ORDERED: levETIRAcetam 500 MG TAB PO SCH (09:00)
[2018-06-14] MEDS ORDERED: medroxyPROGESTERone Acetate 5 MG TAB PO SCH (09:00)
--- NOTE | 2018-06-14 13:50 | DIS ---
DATE OF ADMISSION: 06/13/2018 DATE OF DISCHARGE: 06/14/2018 SUBJECTIVE: Ms. Bourgeois had a good night. She had no further seizures. She reports no other medical complaints at this time. OBJECTIVE: VITAL SIGNS: Temperature 98.3, blood pressure 120/73, O2 saturation is 98%, and respirations 20. GENERAL: She is alert, active, in no acute distress. HEENT: Normocephalic and atraumatic. Sclerae and conjunctivae are clear. NECK: Supple. Full range of motion. No masses. LUNGS: Clear. HEART: Reveals a regular rate and rhythm. No murmurs, gallops, or rubs. NEUROLOGICAL: She is alert and oriented x3. IMPRESSION: 1. Status post seizure. 2. Status post INSURANCE PROCESSING CLERK bleeding. PLAN: 1. The patient is now stable. She can resume her home medications. 2. She will need INSURANCE PROCESSING CLERK followup. She will be discharged home after overnight watch. She had no further seizure activity. She will be continued on her home medicines of medroxyprogesterone 10 mg daily, iron 18 mg daily, fish oil 2000 mg daily, aspirin 81 mg daily, and Keppra 500 mg tablets 3 tablets p.o. daily. She will follow up with her INSURANCE PROCESSING CLERK doctor per schedule as well as Dr. Larson, her PCP in approximately 1 week. Job ID: [id number]
== END 2018-06-14 09:54 | disposition home or self-care (01) ==
LOC: ERS 11:54 → SURG A 16:07 → ERHOLD 16:08 → SURG A 20:24
PROVIDERS: ADMIT Family Medicine; ATTEND Family Medicine
DX: G40.909 Epilepsy, unspecified, not intractable, without status epilepticus (principal); N99.820 Postprocedural hemorrhage of a genitourinary system organ or structure following a genitourinary system procedure; E78.5 Hyperlipidemia, unspecified; E78.00 Pure hypercholesterolemia, unspecified; Z86.73 Personal history of transient ischemic attack (TIA), and cerebral infarction without residual deficits; Z79.82 Long term (current) use of aspirin; Z79.899 Other long term (current) drug therapy; Z90.710 Acquired absence of both cervix and uterus; Z90.722 Acquired absence of ovaries, bilateral; Z90.79 Acquired absence of other genital organ(s)
CPT/HCPCS: 36415; 51701; 70450; 80053; 80306; 81003; 81015; 84146; 85025; 85610; 85730; 86850; 86900; 86901; 93005; 94760; 96361; 96365; 96375; A4353; G0378; J1953; J2060

== ENCOUNTER 2019-02-14 08:52 | Outpatient (CLI) | payer BC, MEDICARE ==
--- NOTE | 2019-02-14 11:10 | MMO ---
Bilateral MAMMO Bilat Screen DDI+ERENDIRA. CLINICAL HISTORY: Patient is 49 years old and is seen for screening. The patient has no family history of breast cancer. The patient has no personal history of cancer. VIEWS: The views performed were: bilateral craniocaudal with tomosynthesis and bilateral mediolateral oblique with tomosynthesis. FILMS COMPARED: The present examination has been compared to a prior imaging study performed at [facility] on 02/05/2018. This study has been interpreted with the assistance of computer-aided detection. MAMMOGRAM FINDINGS: The breasts are heterogeneously dense, which could obscure a lesion on mammography. Finding 1: There is an oval mass measuring 17 millimeters with circumscribed margins and associated biopsy clip seen in the upper-outer region of the left breast. This has increased in size from the prior exam. Finding 2: There is an oval mass measuring 16 millimeters with circumscribed margins and associated biopsy clip seen in the upper-outer region of the left breast. This has increased in size from the prior exam. In the right breast, there are no suspicious masses, calcifications or areas of architectural distortion. Two masses in the left breast, with biopsy clips next to, but not within them, have both significantly grown since 2016. IMPRESSION: FINDING 1: MASS IN THE UPPER-OUTER REGION OF THE LEFT BREAST REQUIRES ADDITIONAL EVALUATION. ADDITIONAL PROJECTIONS ARE RECOMMENDED. AN ULTRASOUND EXAM IS RECOMMENDED. ADDITIONAL IMAGING. FINDING 2: MASS IN THE UPPER-OUTER REGION OF THE LEFT BREAST REQUIRES ADDITIONAL EVALUATION. ADDITIONAL PROJECTIONS ARE RECOMMENDED. AN ULTRASOUND EXAM IS RECOMMENDED. ADDITIONAL IMAGING. THE RESULTS OF THIS EXAM WERE SENT TO THE PATIENT. ACR BI-RADS Category 0 - Incomplete: Need additional imaging evaluation. [facility] will notify the patient of the need for additional imaging services. MAMMOGRAPHY NOTE: 1. A negative mammogram report should not delay a biopsy if a dominant of clinically suspicious mass is present. 2. Approximately 10% to 15% of breast cancers are not detected by mammography. 3. Adenosis and dense breasts may obscure an underlying neoplasm. Reported by: ARACELY MENJIVAR MD Electonically Signed: [id number]
== END 2019-02-14 08:53 | disposition home or self-care (01) ==
LOC: BICMAMMO 08:52
PROVIDERS: ATTEND Family Medicine
DX: Z12.31 Encounter for screening mammogram for malignant neoplasm of breast (principal); N63.21 Unspecified lump in the left breast, upper outer quadrant
CPT/HCPCS: 77063; 77067

== ENCOUNTER 2019-02-21 09:21 | Outpatient (CLI) | payer BC ==
--- NOTE | 2019-02-21 10:31 | MMO ---
Right Breast MAMMO Unilat Diag DDI RT+ERENDIRA. CLINICAL HISTORY: Patient is 49 years old and is seen for additional evaluation requested at current screening. The patient has no family history of breast cancer. The patient has no personal history of cancer. The patient has a history of right needle biopsy. VIEWS: The views performed were: right craniocaudal spot compression with tomosynthesis; right mediolateral oblique spot compression with tomosynthesis; and right mediolateral with tomosynthesis. FILMS COMPARED: The present examination has been compared to prior imaging studies performed at [facility] on 01/12/2016, 02/05/2018, 02/14/2019 and 02/21/2019. This study has been interpreted with the assistance of computer-aided detection. MAMMOGRAM FINDINGS: The breast is heterogeneously dense, which could obscure a lesion on mammography. Finding 1: There is a stable equal density, oval mass with circumscribed margins seen in the right breast at 9 o'clock. 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 This is stable in size with respect to multiple comparsion exams. Finding 2: There is a new equal density, oval mass with circumscribed margins seen in the anterior region of the right breast at 11 o'clock. A hypoechoic mass is seen in this region sonographically. IMPRESSION: FINDING 1: STABLE MASS IN THE RIGHT BREAST AT 9 O'CLOCK IS BENIGN. FINDING 2: NEW MASS IN THE ANTERIOR REGION OF THE RIGHT BREAST AT 11 O'CLOCK IS SUSPICIOUS. AN ULTRASOUND-GUIDED BREAST BIOPSY IS RECOMMENDED. RESULTS AND RECOMMENDATIONS DISCUSSED WITH THE PATIENT AND QUESTIONS ANSWERED. THE RESULTS OF THIS EXAM WERE SENT TO THE PATIENT. ACR BI-RADS Category 4 - Suspicious abnormality - biopsy should be considered MAMMOGRAPHY NOTE: 1. A negative mammogram report should not delay a biopsy if a dominant of clinically suspicious mass is present. 2. Approximately 10% to 15% of breast cancers are not detected by mammography. 3. Adenosis and dense breasts may obscure an underlying neoplasm. Reported by: BERONICA CHEN MD Electonically Signed: [id number]
--- NOTE | 2019-02-21 11:54 | ULT ---
LIMITED RIGHT BREAST ULTRASOUND: 02/21/2019 PROVIDED CLINICAL HISTORY: Abnormal mammogram. FINDINGS: Limited sonographic interrogation was performed of the right breast in the 9 o'clock and 11 o'clock p ositions. At the 9 o'clock position there is a 1.6 cm, circumscribed, hypoechoic mass without shadowing or othe r concerning findings. This mass has been present on multiple prior mammograms and appears stable. At the 11 o'clock position of the right breast, there is a 1.7 cm hypoechoic oval mass with well circ umscribed margins. There is mild lobulation of the margins of this mass and it does appear new with r espect to the 2016 and 2018 screening mammograms. IMPRESSION: 1. New 1.7 cm right 11 o'clock breast mass is suspicious. Ultrasound guided biopsy is recommended. 2. The 9 o'clock right breast mass is stable mammographically and is benign. 3. BI-RADS category 4 - suspicious abnormality. POS: OFF
--- NOTE | 2019-02-21 13:33 | MMO ---
Right Breast MAMMO Unilat Diag DDI RT. CLINICAL HISTORY: Patient is 49 years old and is seen for breast biopsy. The patient has no family history of breast cancer. The patient has no personal history of cancer. The patient has a history of right Ultrasound Guided Core Biopsy in February, and right needle biopsy. VIEWS: The views performed were: right craniocaudal and right mediolateral oblique. FILMS COMPARED: The present examination has been compared to prior imaging studies performed at [facility] on 02/05/2018, 02/14/2019 and 02/21/2019. This study has been interpreted with the assistance of computer-aided detection. MAMMOGRAM FINDINGS: The breast is heterogeneously dense, which could obscure a lesion on mammography. There is a new biopsy clip seen in the right breast. IMPRESSION: NEW BIOPSY CLIP IN THE RIGHT BREAST IS CONFIRMED UTILIZING POST PROCEDURE MAMMOGRAM. THE RESULTS OF THIS EXAM WERE SENT TO THE PATIENT. MAMMOGRAPHY NOTE: 1. A negative mammogram report should not delay a biopsy if a dominant of clinically suspicious mass is present. 2. Approximately 10% to 15% of breast cancers are not detected by mammography. 3. Adenosis and dense breasts may obscure an underlying neoplasm. Reported by: BERONICA CHEN MD Electonically Signed: [id number]
--- NOTE | 2019-02-21 13:41 | ULT ---
ULTRASOUND GUIDED RIGHT BREAST BIOPSY: 02/21/2019 PROVIDED CLINICAL HISTORY: Right breast mass. FINDINGS: Limited sonographic interrogation was performed of the right breast, re-demonstrating the 11 o'clock breast lesion previously described. Informed consent was obtained from the patient. The skin overlyin g the lesion was prepped and draped in the usual sterile manner and anesthetized with 1% buffered Lid ocaine. A small skin incision was made. Ultrasound with continuous guidance was utilized to obtain fo ur core samples of the mass. Continuous ultrasound guidance was utilized to deploy a biopsy site carl er. [place] were withdrawn and hemostasis achieved. No immediate complications. Post biopsy mammogram s demonstrate appropriate clip deployment. IMPRESSION: Technically successful ultrasound guided right breast biopsy. Please correlate with histology results to follow. POS: OFF
== END 2019-02-21 09:22 | disposition home or self-care (01) ==
LOC: BICMAMMO 09:21
PROVIDERS: ATTEND Family Medicine
DX: N63.13 Unspecified lump in the right breast, lower outer quadrant (principal)
CPT/HCPCS: 19083; G0279

== ENCOUNTER 2019-04-07 17:09 | Observation (INO) | payer BC ==
[2019-04-07] MEDS ORDERED: Ondansetron ODT 4 MG TAB ONE (17:22)
[2019-04-07 18:23] LABS: #Basophils 0.1 thou/uL (0.0-0.2); #Lymphocytes 1.2 thou/uL (1.20-3.40); #Monocytes 0.7 thou/uL (0.11-0.59); #Neutrophils 16.5 thou/uL (1.40-6.50); %Basophils 0.3 % (0.0-1.0); %Eosinophils 0.1 % (0.0-10.0); %Lymphocytes 6.5 % (21.0-51.0); %Monocytes 3.6 % (0.0-10.0); %Neutrophils 89.5 % (42.0-75.0); Hemoglobin 15.5 g/dL (12.0-16.0); Mean Corpuscular HGB CONC 33.5 g/dL (32.0-36.0); Mean Corpuscular Hemoglobin 31.5 pg (27.0-31.0); Mean Corpuscular Volume 94.2 fL (78.0-98.0); Mean Platelet Volume 7.3 fL (7.4-10.4); Platelet Count 319 thou/uL (130-400); RBC Distribution Width 11.3 % (11.5-14.5); Red Blood Cell (RBC) Count 4.92 mill/uL (4.20-5.40); White Blood Cell (WBC) Count 18.4 thou/uL (4.8-10.8)
[2019-04-07] MEDS ORDERED: Lorazepam 2 MG/ML VIAL ONE (18:31)
[2019-04-07 18:45] LABS: ALT (SGPT) 20 U/L (8-55); AST (SGOT) 22 U/L (5-34); Albumin 5.3 g/dL (3.5-5.0); Alkaline Phosphatase 71 U/L (40-110); Anion Gap 21 mmol/L (10-20); BHCG - Serum Negative (NEGATIVE); BUN (Urea Nitrogen) 9 mg/dL (7.0-18.7); Bilirubin, Total 0.2 mg/dL (0.2-1.2); Calc. Creatinine Clearance 0 mL/min (70-130); Calcium 9.6 mg/dL (7.8-10.44); Carbon Dioxide 20 mmol/L (22-29); Chloride 105 mmol/L (98-107); Estimated GFR-MDRD 70; Globulin 3.6 g/dL (2.4-3.5); Glucose 128 mg/dL (70-105); Potassium 3.8 mmol/L (3.5-5.1); Pregs Control Background? CLEAR/WHITE (CLR/WHITE); Pregs Control Bar Appear? YES (CONTROL BAR); Protein, Total 8.9 g/dL (6.0-8.3); Sodium 142 mmol/L (136-145)
[2019-04-07] MEDS ORDERED: levETIRAcetam 500 MG/100 ML PREMIX BAG ONE ×2 (20:19→20:21)
[2019-04-08] MEDS ORDERED: Ondansetron PF 4 MG/2 ML Vial IVP PRN (00:44)
[2019-04-08] MEDS ORDERED: Senokot S 8.6-50 MG TAB PO PRN (00:44)
[2019-04-08] MEDS ORDERED: Calcium Carbonate 500 MG ChewTAB PO PRN (00:44)
[2019-04-08] MEDS ORDERED: Acetaminophen 325 MG TAB PO PRN (00:44)
[2019-04-08] MEDS ORDERED: Lorazepam 2 MG/ML VIAL SLOW IVP PRN (00:46)
[2019-04-08] MEDS ORDERED: Sodium Chloride 0.9% 1,000 ML IV SCH (01:00)
--- NOTE | 2019-04-08 02:00 | HP ---
The patient was seen and examined on 07 April 2019. PRIMARY CARE PHYSICIAN: Dr. Felice Larson. CHIEF COMPLAINT: Seizure. HISTORY OF PRESENT ILLNESS: The patient is a 49-year-old female with seizure disorder, on Keppra, was brought into the emergency room after 3 episodes of seizure earlier today. History obtained from the patient, whose mentation is improving. The mother is also at the bedside. The patient is on 1500 mg Keppra every day, which she takes around 1 p.m. She is not sure whether it is extended release or immediate release. Today, she woke up late. For this reason, there was a delay in taking her Keppra. Around 2:00 p.m., she had one episode of seizure that was witnessed by her . According to the mother, her seizure was generalized tonic-clonic. She also had tongue biting along with incontinence. She had another episode of seizure 30 minutes later. The third episode of seizure happened in another 30 minutes or so. For this reason, she was brought into the emergency room. In the emergency room, her initial vital signs showed temperature of 99.1, respirations 20, pulse rate of 101 with a blood pressure 116/74 with O2 saturation of 95% on room air. The patient denies any fevers, chills, or recent injuries. Her last episode of seizure prior to this was approximately 1 year ago. She denies any other focal deficit. No syncope, chest pain, or palpitations reported. In the emergency room, the patient had another episode of seizure. She received IV Keppra 500 mg. She also took 1500 mg Keppra in the emergency room. PAST MEDICAL HISTORY: 1. Seizure disorder. 2. Dyslipidemia. 3. History of CVA with residual left hand weakness. She received tPA at that time. PAST SURGICAL HISTORY: 1. Tubal ligation. 2. Uterine ablation. 3. Partial hysterectomy. CURRENT HOME MEDICATIONS: The patient is unable to provide accurate list. She states that she takes, 1. Aspirin 81 mg daily. 2. Keppra 1500 mg daily. 3. Fish oil. 4. Multivitamin. ALLERGIES: NO KNOWN DRUG ALLERGIES. SOCIAL HISTORY: The patient currently lives at home with her . She is a former smoker, quit in 1992. She has 2 children. No current use of tobacco, alcohol, or drug use. FAMILY HISTORY: Father had MVA in 1999. Mother is alive. REVIEW OF SYSTEMS: All other review of systems were reviewed and were found negative. PHYSICAL EXAMINATION: VITAL SIGNS: As discussed above. GENERAL: A 49-year-old female, in no apparent distress, still somewhat somnolent, however, answering appropriately. HEENT: Head, atraumatic and normocephalic. Sclerae anicteric. Pupils were reacting to light. Tongue biting noted. NECK: Supple. No JVD. No carotid bruit. LUNGS: Clear to auscultation bilaterally. No wheezing, rales, or rhonchi. HEART: S1 and S2 present. Regular rate and rhythm. No rubs or gallops. ABDOMEN: Soft. Bowel sounds present. No rebound or guarding. No costovertebral angle tenderness. EXTREMITIES: No edema or calf tenderness. NEUROLOGY: Cranial nerves 2 through 12 are normal on examination. Power was 5/5 in all extremities except for chronic weakness in the left hand. Sensation to touch was normal bilaterally. No neck stiffness. PSYCHIATRY: As discussed above. SKIN: Warm and dry. LYMPH NODES: No palpable lymph nodes in the neck. MEDICATIONS ADMINISTERED IN THE EMERGENCY ROOM: Keppra 500 mg IV x1, lorazepam 2 mg IV x1, IV fluid, and Zofran. LABORATORY FINDINGS: CBC showed WBC 18.4 with hemoglobin of 15.5, hematocrit 46.4, and platelets of 319. Chemistry showed sodium 142, potassium 3.8, chloride 105, bicarb 20, BUN of 9, and creatinine 0.86. test was negative. Prolactin was 13.3. Telemetry monitoring by my review showed sinus rhythm. IMPRESSION: 1. Seizure, probably secondary to medication noncompliance. 2. Chronic kidney disease, stage 2. 3. History of cerebrovascular accident with residual left hand weakness. 4. History of seizure disorder. 5. Leukocytosis of unclear etiology. Rule out urinary tract infection. PLAN: The patient will be monitored in the stroke unit as observation. We will try to confirm whether she takes extended release or instant release tablets. If instant release, I advise the patient to take 500 mg 3 times a day. Seizure precautions. Ativan p.r.n. for seizure. We will recheck CBC in a.m. We will check urinalysis. The patient and the mother stated understanding with the above plan of care. The patient was seen and examined on 07 April 2019. Job ID: [id number]
[2019-04-08] MEDS ORDERED: Magnesium Sulfate 2 GM in Sodium Chloride 0.9% 100 ML IVPB SCH (02:30)
[2019-04-08] MEDS ORDERED: Magnesium 2 GM/50 ML 2 GM in Premix Bag 1 BAG IVPB SCH (03:00)
[2019-04-08] MEDS ORDERED: Magnesium 2 GM/50 ML BAG (IN WATER) ONE (04:39)
[2019-04-08] MEDS ORDERED: levETIRAcetam 500 MG TAB PO SCH (06:00)
[2019-04-08 08:13] LABS: #Basophils 0.1 thou/uL (0.0-0.2); #Eosinphils 0.1 thou/uL (0.0-0.7); #Lymphocytes 2.7 thou/uL (1.20-3.40); #Monocytes 1.1 thou/uL (0.11-0.59); #Neutrophils 7.8 thou/uL (1.40-6.50); %Basophils 0.5 % (0.0-1.0); %Eosinophils 0.4 % (0.0-10.0); %Monocytes 9.3 % (0.0-10.0); %Neutrophils 66.7 % (42.0-75.0); Hemoglobin 13.1 g/dL (12.0-16.0); Mean Corpuscular HGB CONC 34.2 g/dL (32.0-36.0); Mean Corpuscular Volume 93.7 fL (78.0-98.0); Mean Platelet Volume 7.4 fL (7.4-10.4); Platelet Count 271 thou/uL (130-400); RBC Distribution Width 11.2 % (11.5-14.5); Red Blood Cell (RBC) Count 4.08 mill/uL (4.20-5.40); White Blood Cell (WBC) Count 11.7 thou/uL (4.8-10.8)
--- NOTE | 2019-04-08 10:21 | PDOC.HOSPP ---
- Subjective Encounter Date: 04/08/19 Encounter Time: 11:00 Subjective: No further seizures. No complaints. Wants to go home. - Objective Result Diagrams: 04/08/19 08:02 04/07/19 18:14 Hospitalist ROS - Review of Systems Constitutional: denies: fever, chills Respiratory: denies: cough, shortness of breath Cardiovascular: denies: chest pain, palpitations, orthopnea Gastrointestinal: denies: nausea, vomiting, abdominal pain Genitourinary: denies: dysuria, hematuria Neurological: denies: weakness, numbness, change in speech, confusion - Medication Medications: Active Medications Generic Name Dose Route Start Last Admin Trade Name Freq PRN Reason Stop Dose Admin Sodium Chloride 1,000 mls @ 100 mls/hr 04/08/19 01:00 04/08/19 01:49 Normal Saline 0.9% IV 04/08/19 10:59 1,000 mls .Q10H RACQUEL Administration Levetiracetam 500 mg 04/08/19 06:00 04/08/19 06:16 Keppra PO 500 mg Q8HR RACQUEL Administration - Exam General Appearance: NAD, awake alert ENT: moist mucosa Heart: RRR, no murmur, no gallops, no rubs Respiratory: CTAB, no wheezes, no rales, no ronchi Gastrointestinal: soft, non-tender, non-distended, normal bowel sounds Neurological: cranial nerve grossly intact Psychiatric: normal affect, normal behavior, A&O x 3 Hosp A/P (1) Seizure Code(s): R56.9 - UNSPECIFIED CONVULSIONS Status: Acute (2) Seizure disorder Code(s): G40.909 - EPILEPSY, UNSP, NOT INTRACTABLE, WITHOUT STATUS EPILEPTICUS Status: Chronic (3) History of CVA with residual deficit Code(s): I69.30 - UNSPECIFIED SEQUELAE OF CEREBRAL INFARCTION Status: Chronic (4) Chronic kidney disease, stage 2 (mild) Code(s): N18.2 - CHRONIC KIDNEY DISEASE, STAGE 2 (MILD) Status: Chronic - Plan Checked Keppra level- decent level after IV supplement, may need increased home dose or better compliance No further seizures so can d/c home. Has Keppra at home. Needs to f/u neurology outpatient. I have given her Dr. Maraist office info. She is considering asking her PCP for advice on who to establish with first.
[2019-04-08] MEDS ORDERED: Aspirin 81 mg Enteric Coated Tablet PO SCH (21:00)
[2019-04-08] MEDS ORDERED: Enoxaparin Sodium 40 MG/0.4 ML SYRINGE SC SCH (21:00)
--- NOTE | 2019-04-09 07:58 | DIS ---
DATE OF ADMISSION: 04/07/2019 DATE OF DISCHARGE: 04/08/2019 PRIMARY CARE PHYSICIAN: Dr. Felice Larson. REASON FOR ADMISSION: Recurrent seizures. DISCHARGE DIAGNOSES: 1. Recurrent seizures, resolved. 2. Seizure disorder. 3. History of stroke with residual arm weakness. 4. Chronic kidney disease, stage 2. PROCEDURES: None. CONSULTATIONS: None. SUMMARY OF HOSPITAL COURSE: This is a 49-year-old female with a history of seizure disorder, on Keppra, brought to the emergency room after three episodes of seizures earlier in the day and then one was in the emergency room. The patient is on 1500 mg of Keppra. There was some question about if she was not quite taking it as prescribed. She did have an extra dose of Keppra given 1500 mg in the emergency room plus another 500 mg IV. The patient has had no further seizures overnight. The Keppra level done in the morning was adequate after the extra boluses at 28.9, but could go higher if she has further seizures. She was feeling back to baseline and was eager to be discharged home. She does not have a neurologist. She did not like the one she was seeing years ago and has not followed up since. We will recommend that she establish with a neurologist. I did give her Dr. Reyna's contact information and she is also going to talk to her primary care doctor about whom he would recommend that she see. DISCHARGE MANAGEMENT: Discharged home. FOLLOWUP: Follow up with Dr. Larson in the next 1-2 weeks and follow up with neurologist in the next 2 to 4 weeks. ACTIVITY: As tolerated. DIET: Regular diet. DISCHARGE MEDICATIONS: Resume all home medications. Job ID: [id number]
== END 2019-04-08 12:18 | disposition home or self-care (01) ==
LOC: ERS 17:09 → ERHOLD 20:00
PROVIDERS: ADMIT Internal Medicine; ATTEND Internal Medicine
DX: G40.909 Epilepsy, unspecified, not intractable, without status epilepticus (principal); E78.5 Hyperlipidemia, unspecified; N18.2 Chronic kidney disease, stage 2 (mild); I63.9 Cerebral infarction, unspecified; G83.20 Monoplegia of upper limb affecting unspecified side; D72.829 Elevated white blood cell count, unspecified; Z79.899 Other long term (current) drug therapy; Z79.82 Long term (current) use of aspirin; Z87.891 Personal history of nicotine dependence
CPT/HCPCS: 36415; 80053; 80177; 83735; 84146; 84703; 85025; 96361; 96365; 96375; J1953; J2060; J3475; Q0162

== ENCOUNTER 2021-03-16 10:46 | Outpatient (CLI) | payer BC | END 2021-03-16 10:47 | disposition home or self-care (01) | LOC: BICMAMMO 10:46 | PROVIDERS: ATTEND Family Medicine | DX: Z12.31 Encounter for screening mammogram for malignant neoplasm of breast (principal); N63.10 Unspecified lump in the right breast, unspecified quadrant | CPT/HCPCS: 77063; 77067 ==

== ENCOUNTER 2021-03-22 15:01 | Outpatient (CLI) | payer BC | END 2021-03-22 15:02 | disposition home or self-care (01) | LOC: BICULT 15:01 | PROVIDERS: ATTEND Family Medicine | DX: R92.8 Other abnormal and inconclusive findings on diagnostic imaging of breast (principal) ==

== ENCOUNTER 2022-04-01 09:28 | Outpatient (CLI) | payer BC | END 2022-04-01 09:29 | disposition home or self-care (01) | LOC: BICMAMMO 09:28 | PROVIDERS: ATTEND Specialist | DX: N63.10 Unspecified lump in the right breast, unspecified quadrant (principal) | CPT/HCPCS: 77066; G0279 ==